=== PATIENT | male | born 1955 | race Caucasian/White ===

== ENCOUNTER 2018-02-15 06:35 | Day surgery (SDC) | payer OTHER, SELFPAY ==
[2018-02-15 07:24] VITALS: BP 181/99; PULSE 97; RESP 18; TEMP 36.7; O2SAT 100
[2018-02-15 07:52] VITALS: BMI 23.7
[2018-02-15] MEDS: SODIUM CHLORIDE 0.9% 1,000 ML 200 ML IV (08:45)
--- NOTE | 2018-02-15 08:53 | PM.HP.1 ---
History of Present Illness Date Patient Seen: 02/15/18 Time Patient Seen: 08:54 Chief complaint: [id number] SCREENING COLONOSCOPY Narrative: Very pleasant and healthy 62-year-old gentleman who is here for screening colonoscopy. His last colonoscopy was more than 10 years ago. He denies any problems or symptoms related to function of his GI tract reports he needs a colonoscopy as part of a health maintenance program. Patient History Family & Social History Family History: Reviewed 02/15/18 by Tara Zimmerman MD Social History: household members spouse Meds Home Medications Medication Instructions Recorded Confirmed Type aspirin [Aspir-81] 81 mg PO DAILY 02/15/18 02/15/18 History Allergies Allergy/AdvReac Type Severity Reaction Status Date / Time No Known Drug Allergies Allergy Verified 02/15/18 07:28 Review of Systems Review of Systems All systems reviewed & are unremarkable except as noted in HPI and below Exam Vital Signs (past 8 hours): - 02/15/18 07:24 Temperature 98.1 F Pulse Rate 97 H Respiratory Rate 18 Blood Pressure 181/99 H Pulse Oximetry 100 Oxygen Delivery Method Room Air Narrative Exam Narrative: Well-nourished well-developed gentleman in no distress HEENT: Normocephalic atraumatic, pupils equal round reactive to light accommodation with anicteric sclera Lungs: Clear to auscultation bilaterally Heart: Regular rate rhythm Abdomen: Soft, nontender, active bowel sounds Extremities: Warm well perfused and without edema Assessment & Plan Plan: Assessment/Plan Narrative: Very pleasant 62-year-old gentleman here for screening colonoscopy. We discussed risks and benefits of procedure the patient expressed desire to complete it today.
[2018-02-15] MEDS: MIDAZOLAM 5 MG/5 ML VIAL IV (09:09)
[2018-02-15] MEDS: fentaNYL 250 MCG/5 ML INJ IV (09:10)
--- NOTE | 2018-02-15 09:14 | PM.OP.1 ---
Operative Date/Time/Diagnoses Date of procedure: 02/15/18 Time of procedure: 09:15 Pre-op diagnosis: Screening Post-op diagnosis: same Procedure & Clinicians Procedure: Colonoscopy to the cecum Same procedure as scheduled: Yes Indications: Last colonoscopy more than 10 years ago Surgeon: Tara Zimmerman Click Yes if Unassisted: Yes Anesthesia Type: Sedation (Versed 8 mg; fentanyl 200 mcg) Operative Notes Findings: 1. Excellent prep 2. No polyps or mass lesions 3. Two small AV malformations at the splenic flexure-neither with stigmata of recent bleeding 4. Mild diverticulosis limited the sigmoid region 5. Grade 1 internal hemorrhoids Closure Type: not applicable Specimen(s): none sent Procedure in detail: After obtaining informed consent, the patient was brought to the GI suite and placed in the left lateral decubitus position on the examination table. After placement of appropriate monitors, the patient was given incremental doses of Versed and Fentanyl until an appropriate level of sedation was achieved. A time out was held per [facility] protocol. A digital rectal examination was performed and did not reveal any masses or obstructing lesions. The colonoscope was gently passed into the patient's anus and the entire colon navigated to the level of the cecum with minimal difficulty. Once in the cecum, the scope was withdrawn being sure to go before and beyond all mucosal folds and prominences and get an excellent examination. The findings are noted above. At the level of the rectal vault, the scope was retroflexed and the internal anal canal was examined. The scope was straightened and air aspirated from the colon. The instrument was removed from the patient's body and the procedure was concluded. The patient was allowed to awaken from sedation without difficulty and taken to the post-anesthesia care unit in good condition. Total sedation time 16 min Total withdrawal time 7 min 47 sec Complications: none Condition: stable Disposition: PACU Plan for aftercare: 1. Discharge to home 2. Plan for next colonoscopy in 10 years or as clinically indicated
[2018-02-15 09:19] VITALS: BP 148/88; PULSE 84; RESP 16; TEMP 37.2; O2SAT 96
[2018-02-15 09:24] VITALS: BP 147/89; PULSE 79; RESP 15; O2SAT 94
[2018-02-15 09:25] VITALS: BP 136/86; PULSE 81; RESP 14; TEMP 36.7; O2SAT 96
[2018-02-15 10:04] VITALS: BP 148/89; PULSE 85; RESP 16; TEMP 36.9; O2SAT 96
--- NOTE | 2018-02-15 10:11 | SUR.PHASEII ---
Operative note printed and given to pt upon discharge per Dr. Zimmerman's request.
== END 2018-02-15 10:10 | disposition home or self-care (01) ==
PROVIDERS: PCP Family Medicine; Visit Provider Surgery
PROC: 0DJD8ZZ Inspection of Lower Intestinal Tract, Via Natural or Artificial Opening Endoscopic (ICD-10-PCS; CPT 45378; principal; 2018-02-15 07:45)
DX: Z12.11 Encounter for screening for malignant neoplasm of colon (principal); K57.30 Diverticulosis of large intestine without perforation or abscess without bleeding; K64.0 First degree hemorrhoids
CPT/HCPCS: 45378; 99152; J2250; J3010